=== PATIENT | female | born 1935 | race Caucasian/White ===

== ENCOUNTER 2019-11-04 23:30 | Emergency (ER) | payer MEDICARE, BC, SELFPAY ==
[2019-11-04 23:31] VITALS: BP 187/85; PULSE 62; RESP 17; TEMP 36.4; O2SAT 98; BMI 27.4
--- NOTE | 2019-11-04 23:52 | ED.DCSUM_ITS ---
- ER Visit Summary Date of Service: 11/04/19 Chief Complaint: Slipped getting out of bed complaining of right posterior rib pain History of Present Illness: The patient is a 84 F past medical history of PR, hypertension, high cholesterol and hypothyroidism. Patient was getting out of bed this evening getting ready to go to bed when she slipped her leg got a gave out she fell against a wall striking her right posterior rib cage. Complaining of right posterior rib pain. Denies any significant head injury or headache. No neck pain or other injuries. Prior to the fall she felt fine. Physical Examination: Older female no acute distress. Accompanied by her son in the room. Vital signs are stable and afebrile. H EENT exam pupils round reactive light. There is no signs of trauma to her face or scalp. No tenderness or hematomas. C-spine nontender. Lungs clear to auscultation bilaterally. Heart regular rhythm. She has had a prior sternotomy is well- healed. Anterior chest wall is nontender. There is no ecchymosis or bruising. No subcu air or crepitance. Abdomen is soft nontender normal bowel sounds no peritoneal signs. Pelvic girdle is intact. Both upper and lower extremities are nontender. Full range of motion. No deformity. 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 Normal flexion-extension of both elbows and shoulders. Normal flexion-extension of both hips knees and ankles. Back spine is nontender. She has tenderness to her right posterior rib cage. There is no ecchymosis or bruising. No crepitance or subcu air. Neurologically she is awake alert with no focal motor deficits. Test Results: Chest x-ray AP and lateral views shows no acute abnormality. No obvious rib fractures. The brand marketing intern states he cannot rule out rib fractures to #6 and 7 on the right anteriorly. No pneumothorax. Normal cardiac silhouette. Prior sternotomy with wires. Prior bowel surgery. Prior LS-spine orthopedic hardware. Read by myself brand marketing intern.. Emergency Department Course and Treatment: Patient fell and has a posterior rib cage injury on the right. Tayler took Tylenol at home and does not want any more for pain. Otherwise her exam is unremarkable. Imaging is being obtained. Repeat exam at 00 20 5 AM she is doing well. We went over her x-ray. I did explain to him that sometimes you can have nondisplaced rib fractures that you can see on a plain film. Treatment Plan: Ice to her back. Tylenol for pain. Follow-up if not improving. Disposition: Discharge Impression: Fall Right posterior rib non-displaced fractures This note was generated with [employer] dictation software. It may contain incorrect words, spelling, and punctuation that were not noted in review of the chart prior to signing ED Disposition - Plan for ED Patient: Disposition: Home or Assisted Living Instructions: ED Contusion Vs Minor Fx Rib Referrals: Jose Alfredo Smith MD [Primary Care Provider] - 1 Week if not improving Additional Instructions: Ice and heat to her back. Tylenol for pain. Follow-up if not improving.
--- NOTE | 2019-11-04 23:59 | RAD_ITS ---
STUDY: X-RAY CHEST REASON FOR EXAM: Female, 84 years old. FALL, ATTENTION RIGHT POSTERIOR RIB PAIN TECHNIQUE: Fall COMPARISON: None. FINDINGS: Median sternotomy wires and CABG clips. Lumbar fusions. Prosthetic cardiac valve. Bibasilar atelectasis. There is no demonstrated pleural abnormality. Normal size heart. Normal mediastinum and lemuel. Normal visualized pulmonary arteries. Normal visualized aortic arch and descending thoracic aorta. Normal visualized thoracic spine. Acute fractures of the anterior aspects of right ribs 6 and 7 cannot be excluded. There is no demonstrated abnormality of the visualized soft tissue structures of the upper abdomen. RAD/Chest PA and Lateral IMPRESSION: Acute fractures of the anterior aspects of right ribs 6 and 7 cannot be excluded. Bibasilar atelectasis. Electronically Signed: Ameya Salazar MD at 0:23 EDT Tel , Service support ,
--- NOTE | 2019-11-05 00:27 | ED.DEP ---
ED Disposition - Plan for ED Patient: Disposition: Home or Assisted Living Instructions: ED Contusion Vs Minor Fx Rib Referrals: Jose Alfredo Smith MD [Primary Care Provider] - 1 Week if not improving Additional Instructions: Ice and heat to her back. Tylenol for pain. Follow-up if not improving.
[2019-11-05 00:45] VITALS: BP 162/78; PULSE 64; RESP 16; O2SAT 97
== END 2019-11-05 00:47 | disposition home or self-care (01) ==
PROVIDERS: Emergency Provider Emergency Medicine; PCP Family Medicine
DX: S22.31XA Fracture of one rib, right side, initial encounter for closed fracture (principal); W06.XXXA Fall from bed, initial encounter; Y93.89 Activity, other specified; Y92.9 Unspecified place or not applicable; I25.2 Old myocardial infarction; I10 Essential (primary) hypertension; E78.00 Pure hypercholesterolemia, unspecified; E03.9 Hypothyroidism, unspecified; Z79.02 Long term (current) use of antithrombotics/antiplatelets; Z79.899 Other long term (current) drug therapy
CPT/HCPCS: 71046; 99282